=== PATIENT | female | born 1975 | race Hispanic/Latino ===

== ENCOUNTER 2022-06-25 16:29 | Emergency (ER) | payer OTHER, SELFPAY ==
[2022-06-25 17:52] VITALS: BP 142/98; PULSE 93; RESP 18; TEMP 36.8; O2SAT 99
--- NOTE | 2022-06-25 18:23 | ED.URI ---
HPI - URI/Sore Throat General Chief Complaint: Upper Respiratory Infection Stated Complaint: sorethroat Time Seen by Provider: 06/25/22 18:15 Source: patient Mode of arrival: ambulatory Limitations: no limitations History of Present Illness HPI Narrative: Patient presents today with a 3 day history of sore throat, bilateral ear pain, cough, fever. She currently rates her pain 9/10 and has been taking ibuprofen with mild relief. Denies any shortness of breath. Pain increases with swallowing. Related Data Home Medications Medication Instructions Recorded Confirmed divalproex 250 mg tablet,extended mg PO 06/25/22 release 24 hr Allergies Allergy/AdvReac Type Severity Reaction Status Date / Time acetaminophen Allergy Panic Verified 04/23/13 13:37 attacks Review of Systems Review of Systems: CONSTITUTIONAL: Denies body aches, chills, or sweats.+ Fever EYES: Denies visual changes, redness, or discharge. ENT: Denies rhinorrhea, congestion. + sore throat, bilateral ear pain CARDIOVASCULAR: Denies chest pain, palpitations, or edema. RESPIRATORY: Denies dyspnea.+ cough GASTROINTESTINAL: Denies abdominal pain, nausea, vomiting, or diarrhea. GENITOURINARY: Denies dysuria or hematuria. SKIN: Denies rash, itching, or wounds. MUSCULOSKELETAL: Denies back pain, joint pain, or myalgia. NEUROLOGIC: Denies headache, numbness, tingling, or weakness. PSYCH: Denies depression or anxiety. PMFSH Comments At time of signature, I have reviewed and agree with nursing past medical, surgical, social and family history unless otherwise noted. Please see nursing chart for further information. There is no relevant family history pertinent to the presenting complaint Exam Narrative: GENERAL: Well-appearing, well-nourished, and in no acute distress. HEAD: Normocephalic, atraumatic. EYES: EOMI. No redness or drainage. Conjunctivae normal. ENT: Mucous membranes pink and moist. Nares clear. No rhinorrhea. TMs erythematous and bulging with purulent material. Throat mildly erythematous without edema or exudate. Uvula midline. NECK: Normal AROM. Supple. No lymphadenopathy. CHEST: No respiratory distress. Clear to auscultation. HEART: Regular rate and rhythm. No murmur appreciated. Normal peripheral pulses. EXTREMITIES: Normal range of motion. No edema. SKIN: Warm, dry, no rash. Capillary refill normal. Normal skin turgor. NEURO: No focal deficits. Alert and oriented x3. Gait steady. PSYCH: Normal affect. No signs of depression or anxiety. Course Course Level of Care: Express Care Visit Vital Signs Vital signs: Vital Signs Temperature 98.2 F 06/25/22 17:52 Pulse Rate 93 06/25/22 17:52 Respiratory Rate 18 06/25/22 17:52 Blood Pressure 142/98 H 06/25/22 17:52 Pulse Oximetry 99 06/25/22 17:52 Oxygen Delivery Room Air 06/25/22 17:52 Temperature 98.2 F 06/25/22 17:52 Pulse Rate 93 06/25/22 17:52 Respiratory Rate 18 06/25/22 17:52 Blood Pressure 142/98 H 06/25/22 17:52 Pulse Oximetry 99 06/25/22 17:52 Oxygen Delivery Room Air 06/25/22 17:52 Reviewed. Pt has been instructed to follow up with her PCP regarding her elevated blood pressure today. MDM - URI/Sore Throat Differential Diagnosis Differential diagnosis: Likely upper respiratory infection, otitis media, viral infection, pharyngitis and other ( strep throat) Lab Data Attestation: I reviewed the patient's lab results. Labs: Strep Screen Presumptive Negative *(Reference Range: Negative)* Critical Care Time Critical Care Time Critical Care Time: No Discharge Plan Discharge Clinical Impression: Bilateral acute suppurative otitis media Qualifiers: Recurrence: non-recurrent Spontaneous tympanic membrane rupture: without spontaneous rupture Qualified Code(s): H66.003 - Acute suppurative otitis media without spontaneous rupture of ear drum, bilateral P
== END 2022-06-25 18:39 | disposition home or self-care (01) ==
PROVIDERS: Emergency Provider Nurse Practitioner
DX: H66.003 Acute suppurative otitis media without spontaneous rupture of ear drum, bilateral (principal); J02.9 Acute pharyngitis, unspecified
CPT/HCPCS: 87081; 87880; 99213; G0463

== ENCOUNTER 2023-04-18 08:19 | Emergency (ER) | payer OTHER, SELFPAY ==
--- NOTE | 2023-04-18 08:36 | ED.SKABFB ---
HPI - Skin/Abscess/Foreign Bdy General Chief complaint: Skin/Abscess/Foreign Body Stated complaint: Rash Source: patient Mode of arrival: ambulatory Limitations: no limitations History of Present Illness HPI narrative: 48-year-old female presented for complaint of itchy red bumps to arms, legs, and torso over the past 3 days. She states it started after staying in a hotel for 2 nights. She admits to bringing her own sheets but is still concerned about bedbugs. Also rode motorcycles and walked outside often. Denies pain or draining to the sites. Denies lip, tongue, or throat swelling, shortness of breath or wheezing. Denies changes to soap, detergent, lotion, or any other exposures. with similar symptoms. Did not try any treatments. Related Data Home Medications Medication Instructions Recorded Confirmed divalproex 250 mg tablet,extended 750 mg PO BID 06/25/22 04/18/23 release 24 hr Allergies Allergy/AdvReac Type Severity Reaction Status Date / Time acetaminophen AdvReac Intermediate Panic Verified 04/18/23 08:20 attacks Review of Systems Review of Systems: CONSTITUTIONAL: Denies body aches, fever, chills, or sweats. EYES: Denies visual changes, redness, or discharge. ENT: Denies rhinorrhea, congestion CARDIOVASCULAR: Denies chest pain, palpitations, or edema. RESPIRATORY: Denies cough or dyspnea. GASTROINTESTINAL: Denies abdominal pain, nausea, vomiting, or diarrhea. SKIN: reports red itchy bumps MUSCULOSKELETAL: Denies back pain, joint pain, or myalgia. NEUROLOGIC: Denies headache, numbness, tingling, or weakness. [facility] Past Medical History Medical History (Updated 04/18/23 @ 09:14 by Avis Méndez, [employer]) No pertinent past medical history Comments At time of signature, I have reviewed and agree with nursing past medical, surgical, social and family history unless otherwise noted. Please see nursing chart for further information. There is no relevant family history pertinent to the presenting complaint Exam Narrative: GENERAL: Well-appearing HEAD: Normocephalic, atraumatic. EYES: conjunctivae clear, and EOMI. ENT: Mucous membranes moist. Oropharynx without edema, erythema or lesions. NECK: Supple. No lymphadenopathy CHEST: Clear to auscultation. HEART: Regular rate and rhythm. SKIN: Warm, dry. Erythematous raised round lesions scattered to legs, arms and torso; clustered to bilateral groin and pubic area; approx 0.5cm diameter, no fluctuance induration or active drainage; nontender. NEURO: Alert and oriented x3. Course Course Emergency Course: Patient is aware of diagnosis, understands and agrees to treatment plan. Anticipatory guidance given. Patient agrees to follow-up as directed and is aware of reasons to seek care at the emergency department. Portions of this record may have been created with voice recognition software Level of Care: Express Care Visit Vital Signs Vital signs: Vital Signs Temperature 97.3 F L 04/18/23 08:43 Pulse Rate 75 04/18/23 08:43 Respiratory Rate 16 04/18/23 08:43 Blood Pressure 126/85 04/18/23 08:43 Pulse Oximetry 100 04/18/23 08:43 Oxygen Delivery Room Air 04/18/23 08:43 Temperature 97.3 F L 04/18/23 08:43 Pulse Rate 75 04/18/23 08:43 Respiratory Rate 16 04/18/23 08:43 Blood Pressure 126/85 04/18/23 08:43 Pulse Oximetry 100 04/18/23 08:43 Oxygen Delivery Room Air 04/18/23 08:43 Reviewed MDM - Skin/Abscess/Foreign Bdy MDM Narrative Medical decision making narrative: Does not appear at this time to be erythema multiforme, bullous, SJS, TEN; no evidence at this time to suggest RMSF, endocarditis or Lyme disease; patient looks well, no neurologic signs or symptoms; no headache, photophobia or neck pain; afebrile; appropriate for initial outpatient treatment; discussed the importance of follow-up, patient agrees Reviewed Rxs. Will send abx given cluster in groin. Instructed raymond
[2023-04-18 08:43] VITALS: BP 126/85; PULSE 75; RESP 16; TEMP 36.3; O2SAT 100
== END 2023-04-18 09:07 | disposition home or self-care (01) ==
PROVIDERS: Emergency Provider Nurse Practitioner Family
DX: S80.862A Insect bite (nonvenomous), left lower leg, initial encounter (principal); S80.861A Insect bite (nonvenomous), right lower leg, initial encounter; S40.862A Insect bite (nonvenomous) of left upper arm, initial encounter; S40.861A Insect bite (nonvenomous) of right upper arm, initial encounter; S20.96XA Insect bite (nonvenomous) of unspecified parts of thorax, initial encounter; S30.861A Insect bite (nonvenomous) of abdominal wall, initial encounter; S30.860A Insect bite (nonvenomous) of lower back and pelvis, initial encounter; W57.XXXA Bitten or stung by nonvenomous insect and other nonvenomous arthropods, initial encounter; G40.909 Epilepsy, unspecified, not intractable, without status epilepticus
CPT/HCPCS: 99213; G0463

== ENCOUNTER 2023-12-09 16:50 | Emergency (ER) | payer OTHER, SELFPAY ==
[2023-12-09 17:07] VITALS: BP 124/83; PULSE 74; RESP 16; TEMP 36.4; O2SAT 100
--- NOTE | 2023-12-09 17:22 | ED.URI ---
HPI - URI/Sore Throat General Chief Complaint: Ear Stated Complaint: bilateral ear pain,nasal drainage Source: patient Mode of arrival: ambulatory Limitations: no limitations History of Present Illness HPI Narrative: 48 year old female presents to Express Care complains of 3 day history of sinus pressure, nasal congestion, runny nose and bilateral ear pressure. Patient reports that to 3 days ago she noticed that she had decreased taste and smell and is concerned about COVID. Patient reports that she has tried [id number] Flonase. Patient reports that she does not like to take antihistamines that she feels like it can worsen her seizures. Patient denies sick contacts. Patient is nonsmoker. Patient denies recent travel. Patient denies fever, body aches, chills, nausea vomiting or diarrhea MD elicited complaint: nasal congestion and sinus pain Onset (ago): week(s) (3) Treatments prior to arrival: cold medicine Related Data Home Medications Medication Instructions Recorded Confirmed divalproex 250 mg tablet,extended 750 mg PO BID 06/25/22 12/09/23 release 24 hr Allergies Allergy/AdvReac Type Severity Reaction Status Date / Time acetaminophen AdvReac Intermediate Panic Verified 12/09/23 17:12 attacks Review of Systems Constitutional: Constitutional: Denies chills, Denies fatigue, Denies fever(s) and Denies weakness ENT: Denies dizziness, Denies epistaxis, Reports nasal congestion and Denies sore throat Comments: Bilateral ear pressure, sinus pressure Respiratory: Respiratory: Denies cough, Denies dyspnea and Denies wheezing Gastrointestinal: Gastrointestinal: Denies diarrhea, Denies nausea and Denies vomiting Musculoskeletal: Musculoskeletal: Denies arthralgias and Denies joint swelling Integumentary/Breasts: Skin/Breast: Denies rash Neurologic: Denies dizziness, Denies syncope and Denies headache(s) PMFSH Past Medical History Medical History (Updated 12/09/23 @ 17:41 by Libby Kearney APRN) Epilepsy No pertinent past medical history Comments At time of signature, I agree with nursing past medical, surgical, social and family history. There is no relevant family history pertinent to the presenting complaint. Exam Const: General: healthy appearing and no acute distress Nutritional Appearance: well nourished Orientation/consciousness: patient oriented x3 Limitations: no limitations HENMT: Head: normal to inspection Ears: external ears normal, TM's normal bilaterally and EAC's normal Face/Nose/Sinus: Normal external nose present Face and sinus: sinus tenderness frontal Mouth: Yes Normal oral and palatal mucosa present and Yes moist mucous membranes Teeth and gingiva: dentition normal Other: Moderate nasal congestion noted, left side is worse than right Eyes: Conjunctivae: conjunctivae normal Neck: Neck: normal visual inspection Resp: Effort & Inspection: normal respiratory effort and not labored Auscultation: clear to auscultation bilaterally, no crackles, no rales and no rhonchi Cardio: Rate: regular rate Rhythm: regular rhythm Heart sounds: no murmurs Skin: General skin exam: normal color Rashes: no rashes Neuro: General: patient oriented x3 Speech: normal speech Gait exam (Neuro): Normal gait present Psych: Affect: normal affect Attitude: cooperative Course Course Level of Care: Express Care Visit Vital Signs Vital signs: Vital Signs Temperature 36.4 C 12/09/23 17:07 Pulse Rate 74 12/09/23 17:07 Respiratory Rate 16 12/09/23 17:07 Blood Pressure 124/83 12/09/23 17:07 Pulse Oximetry 100 12/09/23 17:07 Oxygen Delivery Room Air 12/09/23 17:07 Temperature 36.4 C 12/09/23 17:07 Pulse Rate 74 12/09/23 17:07 Respiratory Rate 16 12/09/23 17:07 Blood Pressure 124/83 12/09/23 17:07 Pulse Oximetry 100 12/09/23 17:07 Oxygen Delivery Room Air 12/09/23 17:07 MDM - URI/Sore Throat MDM Narrative Medical d
== END 2023-12-09 17:45 | disposition home or self-care (01) ==
PROVIDERS: Emergency Provider Nurse Practitioner Family
DX: J01.80 Other acute sinusitis (principal); Z20.822 Contact with and (suspected) exposure to COVID-19; G40.909 Epilepsy, unspecified, not intractable, without status epilepticus
CPT/HCPCS: 87426; 99213; G0463